=== PATIENT | male | born 1960 | race Caucasian/White ===

== ENCOUNTER 2020-10-30 14:10 | Outpatient (CLI) | payer BC, MEDICARE ==
[2020-10-30 14:52] LABS: Estimated GFR-MDRD - POC Greater than 90
== END 2020-10-30 14:11 | disposition home or self-care (01) ==
LOC: CSHMRI 14:10
PROVIDERS: ATTEND Nurse Practitioner Family
DX: M25.552 Pain in left hip (principal); M79.2 Neuralgia and neuritis, unspecified
CPT/HCPCS: 82565

== ENCOUNTER 2022-09-27 18:42 | Observation (INO) | payer BC, MEDICARE ==
[~2022-09-27 18:42] MED LIST: Iopamidol 300 61% 100 ML VIAL FS ONE
[2022-09-27 20:11] LABS: #Basophils 0.1 10x3/uL (0.0-0.2); #Eosinphils 0.1 10x3/uL (0.0-0.5); #Monocytes 0.6 10x3/uL (0.0-1.1); #Neutrophils 6.5 10x3/uL (1.5-8.4); %Basophils 0.8 % (0.0-2.0); %Eosinophils 0.8 % (0.0-6.0); %Lymphocytes 12.9 % (18.0-47.0); %Monocytes 6.9 % (0.0-10.0); %Neutrophils 78.1 % (40.0-75.0); Hemoglobin 15.1 g/dL (13.5-17.5); Mean Corpuscular HGB CONC 33.1 g/dL (32.0-36.0); Mean Corpuscular Hemoglobin 27.7 pg (27.0-33.0); Mean Corpuscular Volume 83.5 fl (81.2-95.1); Mean Platelet Volume 9.4 fl (7.4-10.4); Platelet Count 208 10x3/uL (150-450); RBC Distribution Width 15.6 % (11.5-14.5); Red Blood Cell (RBC) Count 5.46 10x6/uL (4.32-5.72); White Blood Cell (WBC) Count 8.3 10x3/uL (3.5-10.5)
[2022-09-27] MEDS ORDERED: Famotidine/PF 20 mg/2ml Vial ONE (20:25)
[2022-09-27] MEDS ORDERED: Ondansetron PF 4 MG/2 ML Vial ONE (20:25)
[2022-09-27 20:26] LABS: ALT (SGPT) 25 U/L (8-55); AST (SGOT) 17 U/L (5-34); Albumin 4.5 g/dL (3.4-4.8); Alkaline Phosphatase 103 U/L (40-110); Anion Gap 16 mmol/L (10-20); BUN (Urea Nitrogen) 13 mg/dL (8.4-25.7); Bilirubin, Total 0.3 mg/dL (0.2-1.2); Calc. Creatinine Clearance 0 mL/min (70-130); Calcium 9.7 mg/dL (7.8-10.44); Carbon Dioxide 23 mmol/L (23-31); Chloride 103 mmol/L (98-107); Estimated GFR 72; Glucose 242 mg/dL (80-115); Lipase 26 U/L (8-78); Potassium 4.3 mmol/L (3.5-5.1); Protein, Total 7.5 g/dL (5.8-8.1); Sodium 138 mmol/L (136-145)
[2022-09-27] MEDS ORDERED: Piperacillin/Tazobactam 3.375 GM VIAL ONE (22:08)
[2022-09-28] MEDS ORDERED: Morphine 2 MG/ML VIAL ONE (00:01)
[2022-09-28] MEDS ORDERED: Ondansetron PF 4 MG/2 ML Vial ONE ×2 (00:01→14:25)
[2022-09-28] MEDS ORDERED: Morphine 4 MG/ML VIAL ONE (00:01)
[2022-09-28 01:13] VITALS: BMI 35.4
[2022-09-28] MEDS ORDERED: Acetaminophen 500 MG TAB PO PRN ×2 (01:22→11:51)
[2022-09-28] MEDS ORDERED: Ondansetron PF 4 MG/2 ML Vial IVP PRN ×3 (01:22→20:16)
[2022-09-28] MEDS: Lactated Ringer's 1,000 ML IV SCH ×5 (01:33→22:39)
[2022-09-28 01:34] LABS: SARS-CoV-2 NAA Rapid Test Not Detected (NotDetected)
[2022-09-28] MEDS: Morphine 4 MG/ML VIAL SLOW IVP PRN ×2 (04:20→08:46)
[2022-09-28] MEDS ORDERED: Piperacillin/Tazobactam 3.375 GM in Sodium Chloride 0.9% 100 ML IVPB SCH ×2 (06:00→12:00)
[2022-09-28] MEDS ORDERED: Morphine 4 MG/ML VIAL SLOW IVP PRN ×2 (11:50→20:16)
[2022-09-28] MEDS ORDERED: Bupivacaine/Epinephrine 0.25% 30 ML VIAL ONE (13:57)
[2022-09-28] MEDS ORDERED: Piperacillin/Tazobactam 3.375 GM VIAL ONE (14:22)
[2022-09-28] MEDS ORDERED: PROPOFOL 20 ML ONE (14:24)
[2022-09-28] MEDS ORDERED: Fentanyl 250 MCG/5 ML VIAL ONE (14:24)
[2022-09-28] MEDS ORDERED: Glycopyrrolate 0.2 MG/ML 5 ML SYRINGE ONE (14:25)
[2022-09-28] MEDS ORDERED: Dexamethasone 20 MG/5 ML VIAL ONE (14:25)
[2022-09-28] MEDS ORDERED: Succinylcholine 200 MG/10 ml SYRINGE FS ONE (14:26)
[2022-09-28] MEDS ORDERED: Dexmedetomidine 200 MCG/2 ML VIAL ONE (14:27)
[2022-09-28] MEDS ORDERED: Iopamidol 30 ML ONE (16:05)
[2022-09-28] MEDS ORDERED: Fentanyl 100 MCG/2 ML VIAL ONE (16:38)
[2022-09-28] MEDS ORDERED: Midazolam HCl 2 mg/2 ml Vial ONE (17:00)
[2022-09-28] MEDS ORDERED: Ketorolac Tromethamine 30 MG/ML VIAL ONE (17:02)
[2022-09-28] MEDS ORDERED: Meperidine HCl/PF 25 MG/ML VIAL ONE (17:12)
[2022-09-28] MEDS: Piperacillin/Tazobactam 3.375 GM in Sodium Chloride 0.9% 100 ML IVPB SCH ×2 (18:17→21:41)
[2022-09-28] MEDS ORDERED: Midazolam HCl 2 mg/2 ml Vial IVP SCH (18:45)
[2022-09-28] MEDS ORDERED: Ketorolac Tromethamine 30 MG/ML VIAL IVP PRN (18:45)
[2022-09-28] MEDS ORDERED: Meperidine HCl/PF 25 MG/ML VIAL IV PRN (18:45)
[2022-09-28] MEDS ORDERED: Promethazine HCl 25 MG/ML VIAL IM/IV PRN (18:45)
[2022-09-28] MEDS ORDERED: Ondansetron HCl/PF 4 MG/2 ML Vial IVP PRN (18:45)
[2022-09-28] MEDS ORDERED: Promethazine HCl 25 MG in Sodium Chloride 0.9% 50 ML IVPB PRN (18:59)
[2022-09-28] MEDS ORDERED: Promethazine HCl 12.5 MG, Admixture Fee 1 EACH in Sodium Chloride 0.9% 50 ML IVPB PRN (19:15)
[2022-09-28] MEDS ORDERED: Morphine 2 MG/ML VIAL SLOW IVP PRN (20:16)
[2022-09-28] MEDS ORDERED: HYDROcodone/Acetaminophen 10/325 mg Tablet PO PRN (20:16)
[2022-09-28] MEDS ORDERED: Promethazine HCl 25 MG/ML VIAL IM PRN (20:16)
[2022-09-28] MEDS ORDERED: Calcium Carbonate 500 MG ChewTAB PO PRN (20:16)
[2022-09-28] MEDS ORDERED: Mag-Al 1200 mg/1200 mg/30 ML UDCUP PO PRN (20:16)
[2022-09-28] MEDS ORDERED: Ipratropium/Albuterol 3 ML NEB NEB PRN (20:16)
[2022-09-28] MEDS ORDERED: Dextrose 5% in Water 1,000 ML IV PRN (20:16)
[2022-09-28] MEDS ORDERED: Dextrose 50% Abboject 50 ML SYRINGE SLOW IVP PRN (20:16)
[2022-09-28] MEDS ORDERED: hydrALAZINE 20 MG/ML VIAL SLOW IVP PRN (20:16)
[2022-09-28] MEDS: Famotidine/PF 20 mg/2ml Vial SLOW IVP SCH (20:38)
[2022-09-28] MEDS: Cyclobenzaprine 10 MG TAB PO SCH (20:38)
[2022-09-28] MEDS: hydrOXYzine 25 MG TAB PO SCH (20:38)
[2022-09-28] MEDS: Gabapentin 100 MG CAP PO SCH (20:39)
[2022-09-28] MEDS: Insulin Regular 300 UNITS/3 ML VIAL SC PRN (20:55)
[2022-09-28] MEDS ORDERED: Amlodipine 5 MG TAB PO SCH (21:00)
[2022-09-28] MEDS ORDERED: Valsartan 80 MG TAB PO SCH (21:00)
[2022-09-28] MEDS ORDERED: Famotidine 20 MG TAB PO SCH (21:00)
[2022-09-28] MEDS ORDERED: Simvastatin 10 MG TAB PO SCH (21:00)
[2022-09-28] MEDS ORDERED: traZODone HCl 50 MG TAB PO SCH (21:00)
[2022-09-28] MEDS ORDERED: Loratadine 10 MG TAB PO SCH (21:00)
[2022-09-28] MEDS ORDERED: Doxepin HCl 25 MG CAP PO SCH (21:00)
[2022-09-28] MEDS: tiZANidine HCl 4 MG TAB PO SCH (21:43)
[2022-09-28] MEDS: HYDROcodone/Acetaminophen 10/325 mg Tablet PO PRN (21:44)
[2022-09-28] MEDS: Famotidine 20 MG TAB PO SCH (22:39)
[2022-09-29] MEDS: Ketorolac Tromethamine 30 MG/ML VIAL IVP SCH ×3 (00:11→11:43)
[2022-09-29 05:09] LABS: Hemoglobin 12.8 g/dL (13.5-17.5); Mean Corpuscular HGB CONC 33.1 g/dL (32.0-36.0); Mean Corpuscular Hemoglobin 27.6 pg (27.0-33.0); Mean Corpuscular Volume 83.6 fl (81.2-95.1); Platelet Count 185 10x3/uL (150-450); RBC Distribution Width 15.4 % (11.5-14.5); Red Blood Cell (RBC) Count 4.63 10x6/uL (4.32-5.72); White Blood Cell (WBC) Count 10.4 10x3/uL (3.5-10.5)
[2022-09-29 05:14] LABS: MDiff Complete? YES
[2022-09-29 05:22] LABS: ALT (SGPT) 32 U/L (8-55); AST (SGOT) 35 U/L (5-34); Albumin 3.6 g/dL (3.4-4.8); Alkaline Phosphatase 65 U/L (40-110); Anion Gap 17 mmol/L (10-20); BUN (Urea Nitrogen) 17 mg/dL (8.4-25.7); Bilirubin, Total 0.6 mg/dL (0.2-1.2); Calc. Creatinine Clearance 105 mL/min (70-130); Calcium 8.8 mg/dL (7.8-10.44); Carbon Dioxide 22 mmol/L (23-31); Chloride 103 mmol/L (98-107); Estimated GFR 74; Globulin 2.1 g/dL (2.4-3.5); Glucose 229 mg/dL (80-115); Potassium 4.5 mmol/L (3.5-5.1); Protein, Total 5.7 g/dL (5.8-8.1); Sodium 137 mmol/L (136-145)
[2022-09-29 05:25] LABS: Mean Platelet Volume 9.8 fl (7.4-10.4)
[2022-09-29] MEDS: Lactated Ringer's 1,000 ML IV SCH (06:08)
[2022-09-29] MEDS: Piperacillin/Tazobactam 3.375 GM in Sodium Chloride 0.9% 100 ML IVPB SCH (06:09)
[2022-09-29 06:26] LABS: Band 9 % (5-11); Lymphocytes 9 % (21-51); Monocytes 14 % (0-10); Neutrophil 68 % (42-75)
[2022-09-29 06:27] LABS: Diff Comment (RBC Morph SCRN) NORMAL; Platelet Morphology Comment Appears Adequate
[2022-09-29] MEDS: Insulin Regular 300 UNITS/3 ML VIAL SC PRN (06:53)
[2022-09-29] MEDS ORDERED: Loratadine 10 MG TAB PO SCH (09:00)
[2022-09-29] MEDS ORDERED: Fluticasone Propionate Nasal Spray 16 gm Bottle NASAL SCH (09:00)
[2022-09-29] MEDS: HYDROcodone/Acetaminophen 10/325 mg Tablet PO PRN (11:44)
[2022-09-29] MEDS: hydrOXYzine 25 MG TAB PO SCH (11:45)
[2022-09-29] MEDS: Famotidine 20 MG TAB PO SCH (11:45)
[2022-09-29] MEDS: Gabapentin 100 MG CAP PO SCH (11:45)
[2022-09-29] MEDS: tiZANidine HCl 4 MG TAB PO SCH (11:45)
[2022-09-29] MEDS: Famotidine/PF 20 mg/2ml Vial SLOW IVP SCH (11:46)
[2022-09-29] MEDS: Cyclobenzaprine 10 MG TAB PO SCH (11:46)
[2022-09-29 12:11] VITALS: BP 138/82; TEMP 98.4
== END 2022-09-29 12:47 | disposition home or self-care (01) ==
LOC: CSHERS 18:42 → CSHTELE 22:50 → UNDOADMOB 22:50 → INTOOBSV 22:50 → CSHTELE 09-28 16:57 → UNDODISOB 09-29 12:47
PROVIDERS: ADMIT Specialist; ATTEND Specialist
PROC: 0FT44ZZ Resection of Gallbladder, Percutaneous Endoscopic Approach (ICD-10-PCS; principal; 2022-09-28)
PROC: BF52200 Other Imaging of Gallbladder using Fluorescing Agent, Indocyanine Green Dye, Intraoperative (ICD-10-PCS; 2022-09-28)
DX: K81.1 Chronic cholecystitis (principal); K81.0 Acute cholecystitis; E11.9 Type 2 diabetes mellitus without complications; I10 Essential (primary) hypertension; Z20.822 Contact with and (suspected) exposure to COVID-19; E66.01 Morbid (severe) obesity due to excess calories; Z68.35 Body mass index [BMI] 35.0-35.9, adult; Z79.899 Other long term (current) drug therapy; Z79.84 Long term (current) use of oral hypoglycemic drugs; E78.5 Hyperlipidemia, unspecified; Z79.4 Long term (current) use of insulin
CPT/HCPCS: 36415; 36416; 47532; 74177; 80053; 83690; 85025; 88304; 94760; 96365; 96375; 96376; C1889; C1894; G0378; J1100; J1815; J1885; J2175; J2250; J2270; J2272; J2405; J2543; J2550; J2704; J3010; J3490; J7120; Q9967; S0028; U0002